=== PATIENT | female | born 1975 | race Caucasian/White ===

== ENCOUNTER → 2020-12-17 07:13 | Outpatient (CLI) | payer OTHER, BC, SELFPAY ==
--- NOTE | ~2020-12-17 | US_ITS ---
US abdomen complete DATE: 12/17/2020 07:39 INDICATION: Right upper quadrant abdominal pain, radiating to back. Vomiting TECHNIQUE: Real-time imaging of the abdomen, Doppler analysis COMPARISON: None FINDINGS: There is hepatic steatosis. There is an approximately 2 x 2.4 cm hyperechoic area of the liver, possibly a hemangioma. Normal hepatopedal portal venous flow direction. There are multiple filling defects of the gallbladder with associated shadowing, consistent with chol elithiasis. There is borderline thickness of the gallbladder wall. No pericholecystic fluid is noted. Negative sonographic Dao's sign. The common bile duct measures 3 mm, normal. Abdominal aorta is of normal caliber. The inferior vena cava is unremarkable. No renal mass lesion or hydronephrosis is detected. The spleen is unremarkable. IMPRESSION: Cholelithiasis Hepatic steatosis Possible hemangioma of the liver; consider CT or MR correlation Reviewed, dictated and finalized at [facility]. Reviewed, dictated and finalized at [facility].
== END ==
PROVIDERS: PCP Internal Medicine; Visit Provider Internal Medicine
DX: R10.11 Right upper quadrant pain (principal); K80.20 Calculus of gallbladder without cholecystitis without obstruction; K76.0 Fatty (change of) liver, not elsewhere classified
CPT/HCPCS: 76700